=== PATIENT | male | born 1950 | race Caucasian/White ===

== ENCOUNTER → 2020-02-12 | Outpatient (CLI) | payer OTHER | LOC: M.ULTRA 02-09 12:38 | PROVIDERS: ATTEND Nurse Practitioner Family | DX: E04.2 Nontoxic multinodular goiter (principal); R59.9 Enlarged lymph nodes, unspecified; K11.20 Sialoadenitis, unspecified; E04.9 Nontoxic goiter, unspecified; K11.1 Hypertrophy of salivary gland ==